=== PATIENT | male | born 1970 | race Caucasian/White ===

== ENCOUNTER 2020-06-26 12:01 | Emergency (ER) | payer BC, OTHER ==
--- OUTSIDE RECORDS SUMMARY | 2020-06-26 12:04 | XMS REPORT | Continuity of Care Document ---
:1970 Author Organization [facility] t Address [address] [place] [address] Care Team Providers Name Role Phone Lab, Fam Pob I Attending Clinician Unavailable Doctor Unassigned, Name Attending Clinician Unavailable Problems This patient has no known problems. Allergies, Adverse Reactions, Alerts This patient has no known allergies or adverse reactions. Medications This patient has no known medications. Procedures This patient has no known procedures. Encounters Start End Encounter Admission Attending Care Care Encounter Source Date/Time Date/Time Type Type Clinicians Facility Department ID 2020-06-24 2020-06-24 Laboratory Lab, Adc [facility] [id number] 13:33:51 13:53:51 Only Fam Pob I Health [id number] [place] [id number] [facility] [id number] nal [address] 2020-06-24 2020-06-24 Letter Doctor BURNETT [id number] 00:00:00 00:00:00 (Out) UnassignedKEHINDE [id number] [place] [facility] [id number] 2020-06-24 2020-06-24 Letter Doctor BURNETT [id number] 00:00:00 00:00:00 (Out) UnassignedKEHINDE [id number] [place] [facility] [id number] Results This patient has no known results.
--- OUTSIDE RECORDS SUMMARY | 2020-06-26 12:04 | XMS REPORT | Summary of Care ---
:1970 Author Organization [facility] Address [address] [place] [address] Care Team Providers Name Role Phone Pcp, Patient Does Not Have A Primary Care Provider +[id number] Encounter Details Date Type Department Care Team Description 06/24/2020 Letter (Out) [facility] aSnkett Message s Doctor Unassigned, No [address] [facility] [place] [address] [facility] [phone] [place] [address] Allergies Not on Filedocumented as of this encounter (statuses as of 06/24/2020) Medications Not on filedocumented as of this encounter (statuses as of 06/24/2020) Active Problems Not on filedocumented as of this encounter (statuses as of 06/24/2020) Social History Tobacco Use Types Packs/Day Years Used Date Never Assessed Sex Assigned at Date Recorded Not on file documented as of this encounter Last Filed Vital Signs Not on filedocumented in this encounter Plan of Treatment Date Type Specialty Care Team Description 06/24/2020 Laboratory Only Family Medicine Lab, Adc Fam Pob I Health Maintenance Due Date Last Done Comments Depression Screening 1980 DTaP,Tdap,and Td Vaccines (1 - 1987 Tdap) COLON CANCER SCREENING ANNUAL 2018 FIT/FOBT COLON CANCER SCREENING FIT DNA 2018 EVERY 3 YEARS COLON CANCER SCREENING 2018 SIGMOIDOSCOPY EVERY 5 YEARS COLONOSCOPY 2018 Colorectal Cancer Screening 2018 Zoster Recombinant Vaccine 2018 (SHINGRIX) (1 of 2) INFLUENZA VACCINE (#1) 2020 PNEUMOCOCCAL 0-64 YEARS COMBINED Aged Out No longer eligible based on SERIES patient's age to complete this topic documented as of this encounter Results Not on filedocumented in this encounter
--- OUTSIDE RECORDS SUMMARY | 2020-06-26 12:04 | XMS REPORT | Summary of Care ---
:1970 Author Organization [facility] Address [address] [place] [address] Care Team Providers Name Role Phone Mathew Shin Primary Care Provider Reason for Visit Reason Comments Exposure Encounter Details Date Type Department Care Team Description 06/24/2020 Laboratory Only [facility] Family Chaka Veliz FNP [address] [place] [phone] Suspected Covid-19 Medicine - [place] [facility], Adc Fam Pob I Virus Infection [address] [place] [address] (Primary D [place]) [place] [address] Allergies Not on Filedocumented as of this encounter (statuses as of 06/24/2020) Medications Not on filedocumented as of this encounter (statuses as of 06/24/2020) Active Problems Not on filedocumented as of this encounter (statuses as of 06/24/2020) Social History Tobacco Use Types Packs/Day Years Used Date Never Assessed Sex Assigned at Date Recorded Not on file COVID-19 Exposure Response Date Recorded In the last month, have you been in contact with No / Unsure 06/24/2020 1:35 PM CDT someone who was confirmed or suspected to have Coronavirus / COVID-19? documented as of this encounter Last Filed Vital Signs Not on filedocumented in this encounter Nursing Notes Jennie Rivera MA - 06/24/2020 1:40 PM CDTNorberto Goldstein is a 50 year old male here for COVID Screening with a Nasopharyngeal Swab All droplet and contact precautions taken with appropriate PPE worn while interacting with patient. ? Goggles ? N95 Mask ? Gloves ? Gown RR 20 Pulse 82 Ox 95% Patient educated on plan of care for visit, swabbing technique, risks and benefits of test and length of time to receive results. Verbal consent obtained to perform test. CDC Fact Sheet for Patients nCoV Diagnostic Panel dated 01/14/2020 and Factsheet What to Do if Sick with COVID 19 12/25/19 provided. Bilate nares swabbed during COVID19 nasopharyngeal swab. Patient swabbed per appropriate nasopharyngeal technique, and patient tolerated well. Patient was discharged from the testing clinic in stable condition. JENNIE RIVERA MA 06/24/2020 1:34 PM documented in this encounter Plan of Treatment Name Type Priority Associated Diagnoses Order S chedule COVID-19 (PCR MOLECULAR LAB Routine Suspected Covid-1 9 Virus Expected: 06/24/2020, TESTING) Infection Expires: 2020 Health Maintenance Due Date Last Done Comments Depression Screening 1980 DTaP,Tdap,and Td Vaccines ( - 1987 Tdap) COLON CANCER SCREENING ANNUAL [...] Results Not on filedocumented in this encounter Visit Diagnoses Diagnosis Suspected Covid-19 Virus Infection - Nicloe alfonso documented in this encounter Additional Health Concerns Infection Onset Date Last Indicated Resolved Time COVID-19 Rule Out 06/24/2020 06/24/2020 documented as of this encounter Insurance Payer Benefit Plan Subscriber ID Effective Dates Phone Address Type / Group [facility] [id number] 2019-Gayle [phone] [address] PPO/POS [place] - OUT OF t [id number] [place] [address] documented as of this encounter
--- OUTSIDE RECORDS SUMMARY | 2020-06-26 12:04 | XMS REPORT | Summary of Care ---
:1970 Author Organization [facility] Address [address] [place] [address] Care Team Providers Name Role Phone Mathew Shin Primary Care Provider Encounter Details Date Type Department Care Team Description 06/24/2020 Letter (Out) [facility] [employer] Message s Doctor Unassigned, No 301 [facility] [place] [phone] [facility] [phone] [place] [address] Allergies Not on Filedocumented as of this [...] Team Description 06/24/2020 Laboratory Only Family Medicine Herminia Veliz FNP [address] [address] Lab, Adc Fam Pob I Health Maintenance [...] Results Not on filedocumented in this encounter Insurance Payer Benefit Plan Subscriber ID Effective Dates Phone Address Type / Group [facility] [id number] 2019-Gayle [phone] [address] PPO/POS [place] - OUT OF t 7 [id number] [place] [address] documented as of this encounter
--- NOTE | 2020-06-26 13:48 | RAD REPORT ---
EXAM DESCRIPTION: Javon Single View06/26/2020 1:42 pm CLINICAL HISTORY: Fever COMPARISON: none FINDINGS: Mild to moderate bibasilar lung opacities Upper lobes appear clear. The heart is normal size IMPRESSION: [id number] bibasilar opacities likely pneumonia
[2020-06-26] MEDS ORDERED: dexAMETHasone 10 MG/ML VIAL ONE (13:57)
[2020-06-26] MEDS ORDERED: ACETAMINOPHEN 500 MG TAB ONE (13:57)
[2020-06-26 14:22] LABS: Absolute Lymphocytes (CBC) 0.8 K/uL (0.7-4.9); Basophils % 0.5 % (0-1.3); Hematocrit 39.3 % (39.6-49.0); Lymphocytes % 24.4 % (15.3-44.8); MPV 9.9 fL (7.6-11.3); RBC Red Blood Cell Count 4.37 M/uL (4.33-5.43)
[2020-06-26 15:14] LABS: Blood Morphology Comment NOT SEEN (NOT SEEN); Platelet Estimate ADEQ
[2020-06-26 15:15] LABS: ALT/SGPT 29 U/L (12-78); AST/SGOT 28 U/L (15-37); Albumin 3.3 g/dL (3.4-5.0); Alkaline Phosphatase 72 U/L (45-117); BUN Blood Urea Nitrogen 10 mg/dL (7-18); Bicarbonate 26 mmol/L (21-32); Bilirubin Direct 0.3 mg/dL (0-0.2); Bilirubin Total 0.6 mg/dL (0.2-1.0); Ferritin 500.8 ng/mL (26-388); Glucose Level 109 mg/dL (74-106); Potassium 3.6 mmol/L (3.5-5.1); Protein, Total 8.1 g/dL (6.4-8.2); Sodium Level 135 mmol/L (136-145); Troponin (Emerg Dept Use Only) < 0.02 ng/mL (0.0-0.045)
[2020-06-26 15:18] LABS: Protime INR 1.14
--- NOTE | 2020-06-26 15:27 | ER ---
Nurse's Notes [facility] Name: Norberto Goldstein Age: 50 yrs Sex: Male : 1970 Arrival Date: 06/26/2020 Time: 12:04 Bed 15 Private MD: Diagnosis: Coronavirus infection, unspecified;Shortness of breath;Viral pneumonia, unspecified Presentation: 06/26 12:43 Chief complaint: Patient states: Covid +. Swabbed on 06/24/2020. Symptoms started ca1 06/19/2020. Reports cough, fever, diarrhea, nausea, fatigue, body aches, headache. Today, feels worse and SOB at rest started. Coronavirus screen: Client denies travel out of the [place] in the last 14 days. diarrhea, fatigue, fever, headache, muscle pain, nausea, shortness of breath, Client presents with at least one sign or symptom that may indicate coronavirus-19. Standard/surgical mask placed on the client. Provider contacted for isolation considerations. Client reports previous positive COVID test result. Date of collection: June 24, 2020 [facility] Staff notified of need for isolation. Ebola Screen: Patient negative for fever greater than or equal to 101.5 degrees Fahrenheit, and additional compatible Ebola Virus Disease symptoms Patient denies exposure to infectious person. Patient denies travel to an Ebola-affected area in the 21 days before illness onset. No symptoms or risks identified at this time. Initial Sepsis Screen: Does the patient meet any 2 criteria? No. Patient's initial sepsis screen is negative. Does the patient have a suspected source of infection? No. Patient's initial sepsis screen is negative. Risk Assessment: Do you want to hurt yourself or someone else? Patient reports no desire to harm self or others. Onset of symptoms was June 26, 2020. 12:43 Method Of Arrival: Ambulatory ca1 12:43 Acuity: FITO 3 ca1 Historical: - Allergies: 12:48 No Known Allergies; ca1 - Home Meds: 12:48 Metformin Oral [Active]; ca1 - PMHx: 12:48 Hypertension; Diabetes - NIDDM; High Cholesterol; ca1 - PSHx: 12:48 None; ca1 - Immunization history:: Adult Immunizations up to date. - Social history:: Smoking status: Patient denies any tobacco usage or history of. Screenin:49 Abuse screen: Denies threats or abuse. Denies injuries from another. Nutritional ca1 screening: No deficits noted. Tuberculosis screening: No symptoms or risk factors identified. Fall Risk IV access (20 points). Assessment: 12:50 General: Appears in no apparent distress. comfortable, Behavior is calm, cooperative, ca1 appropriate for age. Pain: Denies pain. Neuro: Level of Consciousness is awake, alert, obeys commands, Oriented to person, place, time, situation. Cardiovascular: Heart tones S1 S2 present Capillary refill < 3 seconds Patient's skin is warm and dry. Respiratory: Reports shortness of breath at rest cough that is Airway is patent Respiratory effort is even, unlabored, Respiratory pattern is regular, symmetrical, Breath sounds are clear bilaterally. GI: Abdomen is round non-distended, obese, Bowel sounds present X 4 quads. Abd is soft and non tender X 4 quads. : No signs and/or symptoms were reported regarding the genitourinary system. EENT: No signs and/or symptoms were reported regarding the EENT system. Derm: Skin is intact, is healthy with good turgor, Skin is pink, warm \T\ dry. Musculoskeletal: Circulation, motion, and sensation intact. Capillary refill < 3 seconds. 13:50 Reassessment: Patient appears in no apparent distress at this time. No changes from ca1 previously documented assessment. Patient and/or family updated on plan of care and expected duration. Pain level reassessed. Patient is alert, oriented x 3, equal unlabored respirations, skin warm/dry/pink. 14:58 Reassessment: Patient appears in no apparent distress at this time. No changes from ca1 previously documented assessment. Patient and/or family updated on plan of care and expected duration. Pain level reassessed. Patient is alert, oriented x 3, equal unlabored respirations, skin warm/dry/pink. 15:23 Reassessment: Ambulated pt around nurse's station. Denies SOB. SPO2 maintained at 95% ca1 Ra. Notified provider. 15:43 Reassessment: Patient appears in no apparent distress at this time. Patient is alert, ca1 oriented x 3, equal unlabored respirations, skin warm/dry/pink. Patient states feeling better. Vital Signs: 12:43 BP 124 / 53; Pulse 75; Resp 18 S; Temp 100.6(O); Pulse Ox 97% on R/A; Weight 158.76 kg ca1 (R); Height 6 ft. 3 in. (190.50 cm) (R); 13:50 BP 127 / 65; Pulse 73; Resp 19 S; Pulse Ox 98% on R/A; ca1 14:52 BP 106 / 64; Pulse 70; Resp 19 S; Temp 98.8(O); Pulse Ox 95% on R/A; ca1 15:43 BP 111 / 62; Pulse 76; Resp 18 S; Pulse Ox 98% on R/A; ca1 12:43 Body Mass Index 43.75 (158.76 kg, 190.50 cm) ca1 ED Course: 12:04 Patient arrived in ED. ag5 12:07 Rick Sanz PA is PHCP. jr8 12:07 Jose Hernandez MD is Attending Physician. jr8 12:21 Carisa Betancur, DANIELLE is Primary Nurse. ca1 12:47 Triage completed. ca1 12:48 Arm band placed on right wrist. ca1 12:49 Patient has correct armband on for positive identification. Placed in gown. Bed in low ca1 position. Call light in reach. Side rails up X 1. Pulse ox on. NIBP on. 12:49 No provider procedures requiring assistance completed. ca1 13:42 CXR XRAY In Process Unspecified. EDMS 14:10 Inserted saline lock: 20 gauge in left antecubital area, using aseptic technique. Blood ca1 collected. 14:10 Initial lab(s) drawn, by me, sent to lab. First set of blood cultures drawn by me. ca1 14:20 Second set of blood cultures drawn by me. ca1 14:57 Lab(s) recollected, by me, sent to lab. ca1 15:44 IV discontinued, intact, bleeding controlled, No redness/swelling at site. Pressure ca1 dressing applied. 15:53 Primary Nurse role handed off by Carisa Betancur, RN aa5 Administered Medications: 13:40 Drug: Tylenol 1000 mg Route: PO; ca1 15:00 Follow up: Response: No adverse reaction; Temperature is decreased ca1 14:40 Drug: Decadron - Dexamethasone 10 mg Route: IVP; Site: left antecubital; ca1 15:30 Follow up: Response: No adverse reaction; Marked relief of symptoms ca1 Outcome: 15:26 Discharge ordered by . jr8 15:44 Discharged to home ambulatory. ca1 15:44 Condition: stable 15:44 Discharge instructions given to patient, Instructed on discharge instructions, follow up and referral plans. medication usage, Demonstrated understanding of instructions, follow-up care, medications, Prescriptions given X 3. 15:44 Patient left the ED. ca1 Signatures: Dispatcher [employer] EDMS Maddie Alberto RN RN aa5 Rick Sanz PA PA jr8 Carisa Betancur RN RN ca1 Wing Bryant ag5 Corrections: (The following items were deleted from the chart) 15:15 14:52 BP 106 / 64; Pulse 70bpm; Resp 19bpm; Spontaneous; Pulse Ox 95% RA; ca1 ca1 15:55 15:55 Patient left the ED. ca1 aa5
--- NOTE | 2020-06-26 15:27 | EDPHYS ---
Physician Documentation [facility] Name: Norberto Goldstein Age: 50 yrs Sex: Male : 1970 Arrival Date: 06/26/2020 Time: 12:04 Bed 15 Private MD: ED Physician Jose Hernandez HPI: 06/26 14:23 This 50 yrs old Male presents to ER via Ambulatory with complaints of COVID+, jr8 Weakness, Breathing Difficulty. 14:23 The patient has shortness of breath at rest. Onset: The symptoms/episode began/occurred jr8 gradually, 1 week(s) ago. Duration: The symptoms are continuous. The patient's shortness of breath is aggravated by exertion. Associated signs and symptoms: Pertinent positives: non-productive cough, fever. Severity of symptoms: At their worst the symptoms were moderate in the emergency department the symptoms are unchanged. The patient has not experienced similar symptoms in the past. The patient has not recently seen a physician. Patient stated that he started with COVID like symptoms over a week ago. Was tested and received results yesterday showing that he was positive. Stated that he has been progressively worsening over the past week. Historical: - Allergies: 12:48 No Known Allergies; ca1 - Home Meds: 12:48 Metformin Oral [Active]; ca1 - PMHx: 12:48 Hypertension; Diabetes - NIDDM; High Cholesterol; ca1 - PSHx: 12:48 None; ca1 - Immunization history:: Adult Immunizations up to date. - Social history:: Smoking status: Patient denies any tobacco usage or history of. ROS: 14:23 Eyes: Negative for injury, pain, redness, and discharge, ENT: Negative for injury, jr8 pain, and discharge, Neck: Negative for injury, pain, and swelling, Cardiovascular: Negative for chest pain, palpitations, and edema, Abdomen/GI: Negative for abdominal pain, nausea, vomiting, diarrhea, and constipation, Back: Negative for injury and pain, MS/Extremity: Negative for injury and deformity, Skin: Negative for injury, rash, and discoloration, Neuro: Negative for headache, weakness, numbness, tingling, and seizure. 14:23 Constitutional: Positive for fatigue, fever. 14:23 Respiratory: Positive for cough, dyspnea on exertion, shortness of breath. Exam: 14:23 Eyes: Pupils equal round and reactive to light, extra-ocular motions intact. Lids and jr8 lashes normal. Conjunctiva and sclera are non-icteric and not injected. Cornea within normal limits. Periorbital areas with no swelling, redness, or edema. ENT: Nares patent. No nasal discharge, no septal abnormalities noted. Tympanic membranes are normal and external auditory canals are clear. Oropharynx with no redness, swelling, or masses, exudates, or evidence of obstruction, uvula midline. Mucous membranes moist. Neck: Trachea midline, no thyromegaly or masses palpated, and no cervical lymphadenopathy. Supple, full range of motion without nuchal rigidity, or vertebral point tenderness. No Meningismus. Cardiovascular: Regular rate and rhythm with a normal S1 and S2. No gallops, murmurs, or rubs. Normal PMI, no JVD. No pulse deficits. Respiratory: Lungs have equal breath sounds bilaterally, clear to auscultation and percussion. No rales, rhonchi or wheezes noted. No increased work of breathing, no retractions or nasal flaring. Abdomen/GI: Soft, non-tender, with normal bowel sounds. No distension or tympany. No guarding or rebound. No evidence of tenderness throughout. Back: No spinal tenderness. No costovertebral tenderness. Full range of motion. Skin: Warm, dry with normal turgor. Normal color with no rashes, no lesions, and no evidence of cellulitis. MS/ Extremity: Pulses equal, no cyanosis. Neurovascular intact. Full, normal range of motion. Neuro: Awake and alert, GCS 15, oriented to person, place, time, and situation. Cranial nerves II-XII grossly intact. Motor strength 5/5 in all extremities. Sensory grossly intact. Cerebellar exam normal. Vital Signs: 12:43 BP 124 / 53; Pulse 75; Resp 18 S; Temp 100.6(O); Pulse Ox 97% on R/A; Weight 158.76 kg ca1 (R); Height 6 ft. 3 in. (190.50 cm) (R); 13:50 BP 127 / 65; Pulse 73; Resp 19 S; Pulse Ox 98% on R/A; ca1 14:52 BP 106 / 64; Pulse 70; Resp 19 S; Temp 98.8(O); Pulse Ox 95% on R/A; ca1 15:43 BP 111 / 62; Pulse 76; Resp 18 S; Pulse Ox 98% on R/A; ca1 12:43 Body Mass Index 43.75 (158.76 kg, 190.50 cm) ca1 MDM: 13:03 Patient medically screened. [facility] 15:22 Data reviewed: vital signs, nurses notes, lab test result(s), EKG, radiologic studies, [facility] plain films. Data interpreted: Pulse oximetry: on room air is 95 %. Interpretation: normal. Counseling: I had a detailed discussion with the patient and/or guardian regarding: the historical points, exam findings, and any diagnostic results supporting the discharge/admit diagnosis, lab results, radiology results, the need for outpatient follow up, a family practitioner, to return to the emergency department if symptoms worsen or persist or if there are any questions or concerns that arise at home. ED course: Patient maintains normal saturation at rest off of oxygen. With brisk ambulation in room drops to 92% but came up almost immediately upon rest. Otherwise hemodynamically stable and with no increase in work of breathing. Labs and CXR consistent with covid viral pneumonia. Patient not needing oxygen requirement. Will d/c home with medication and close return precautions . 06/26 13:03 Order name: Blood Culture Adult (2) [facility] 06/26 13:03 Order name: BMP; Complete Time: 15: [facility] 06/26 13:03 Order name: C-Reactive Protein; Complete Time: 15: [facility] 06/26 13:03 Order name: CBC with Diff; Complete Time: 15:22 [facility] 06/26 13:03 Order name: COVID-19 [facility] 06/26 13:03 Order name: Ferritin; Complete Time: 15:22 [facility] 06/26 13:03 Order name: Lactate; Complete Time: 14:39 [facility] 06/26 13:03 Order name: LFT's; Complete Time: 15:22 [facility] 06/26 13:03 Order name: Procalcitonin; Complete Time: 14:59 [facility] 06/26 13:03 Order name: PT-INR; Complete Time: 15:22 [facility] 06/26 13:03 Order name: Ptt, Activated; Complete Time: 15:22 [facility] 06/26 13:03 Order name: Troponin (emerg Dept Use Only); Complete Time: 15:22 jr06/26 13:03 Order name: CXR XRAY; Complete Time: 13:55 06/26 13:03 Order name: EKG; Complete Time: 13:03 06/26 13:03 Order name: Cardiac monitoring; Complete Time: 14:43 06/26 13:03 Order name: Droplet/Contact Precautions; Complete Time: 14:43 06/26 13:03 Order name: EKG - Nurse/Tech; Complete Time: 14:43 06/26 13:03 Order name: IV Start; Complete Time: 14:43 06/26 13:03 Order name: Labs collected and sent; Complete Time: 14:45 06/26 13:03 Order name: Notify Health Dept [phone]/ ; Complete Time: 14:45 06/26 13:03 Order name: O2 Per Protocol; Complete Time: 14:45 06/26 13:03 Order name: O2 Sat Monitoring; Complete Time: 14:46 [facility] 06/26 14:36 Order name: Manual Differential; Complete Time: 15:22 EDMS 06/26 15:55 Order name: Urine Dipstick--Ancillary (enter results) aa5 06/26 13:03 Order name: Urine Dipstick-Ancillary (obtain specimen); Complete Time: 15:00 [facility] 06/26 14:31 Order name: Labs - recollect needed: recollect blue top; Complete Time: 14:58 bd Administered Medications: 13:40 Drug: Tylenol 1000 mg Route: PO; ca1 15:00 Follow up: Response: No adverse reaction; Temperature is decreased ca1 14:40 Drug: Decadron - Dexamethasone 10 mg Route: IVP; Site: left antecubital; ca1 15:30 Follow up: Response: No adverse reaction; Marked relief of symptoms ca1 Disposition: 16:50 Co-signature as Attending Physician, Jose Hernandez MD. rn Disposition: 06/26/20 15:26 Discharged to Home. Impression: Coronavirus infection, unspecified, Shortness of breath, Viral pneumonia, unspecified. - Condition is Stable. - Discharge Instructions: Shortness of Breath, COVID-19. - Prescriptions for Flovent HFA 110 mcg/actuation Inhalation Aerosol - inhale 2 puffs by INHALATION route 2 times per day; 1 Inhaler. Prednisone 20 mg Oral Tablet - take 2 tablets by ORAL route once daily for 7 days; 14 tablet. Zithromax Z- Saulo 250 mg Oral Tablet - take 1 tablet by ORAL route as directed for 5 days Day 1 - take two (2) tablets one time. Day 2, 3, 4 , 5 take one (1) tablet once daily.; 6 tablet. - Medication Reconciliation Form, Thank You Letter, Antibiotic Education, Prescription Opioid Use form. - Follow up: Private Physician; When: 1 week; Reason: Recheck today's complaints, Continuance of care, Re-evaluation by your physician. - Problem is new. - Symptoms have improved. Signatures: Dispatcher [employer] EDMS Adriane Burgess Roman, MD MD rn Roszak, Josh, PA PA jr8 Gypsy, DANIELLE Younger RN ca1 Corrections: (The following items were deleted from the chart) 13:03 13:03 Montano ordered. 8 ca1 14:44 13:03 Document PUI# ordered. 8 ca1 15:44 15:26 06/26/2020 15:26 Discharged to Home. Impression: Coronavirus infection, ca1 unspecified; Shortness of breath; Viral pneumonia, unspecified. Condition is Stable. Forms are Medication Reconciliation Form, Thank You Letter, Antibiotic Education, Prescription Opioid Use. Follow up: Private Physician; When: 1 week; Reason: Recheck today's complaints, Continuance of care, Re-evaluation by your physician. Problem is new. Symptoms have improved. [facility] 15:55 15:44 06/26/2020 15:26 Discharged to Home. Impression: Coronavirus infection, ca1 unspecified; Shortness of breath; Viral pneumonia, unspecified. Condition is Stable. Discharge Instructions: Shortness of Breath, COVID-19. Prescriptions for Flovent HFA 110 mcg/actuation Inhalation Aerosol - inhale 2 puffs by INHALATION route 2 times per day; 1 Inhaler, Prednisone 20 mg Oral Tablet - take 2 tablets by ORAL route once daily for 7 days; 14 tablet, Zithromax Z-Saulo 250 mg Oral Tablet - take 1 tablet by ORAL route as directed for 5 days Day 1 - take two (2) tablets one time. Day 2, 3, 4 , 5 take one (1) tablet once daily.; 6 tablet. and Forms are Medication Reconciliation Form, Thank You Letter, Antibiotic Education, Prescription Opioid Use. Follow up: Private Physician; When: 1 week; Reason: Recheck today's complaints, Continuance of care, Re-evaluation by your physician. Problem is new. Symptoms have improved. ca1
[2020-06-26 16:02] LABS: Urine Blood NEGATIVE (NEG); Urine Glucose NEGATIVE (NEG); Urine Protein 2+ (NEG); Urine Specific Gravity 1.015 (1.005-1.030)
[2020-07-01 11:11] VITALS: TEMP 98.8
[2020-07-01 11:13] VITALS: BP 111/62; O2SAT 98
== END 2020-06-26 15:55 | disposition home or self-care (01) ==
LOC: ER 12:01
DX: U07.1 COVID-19 (principal); J12.9 Viral pneumonia, unspecified; I10 Essential (primary) hypertension; E11.9 Type 2 diabetes mellitus without complications
CPT/HCPCS: 93005; 87040 ×2; 85025; 80048; 36415; 85610; 80076; 83605; 85730; 81003; 84484; 82728; 84145; 86140; 71045; 96374; 99284; J1100

== ENCOUNTER 2023-06-20 00:19 | Emergency (ER) | payer BC ==
--- OUTSIDE RECORDS SUMMARY | 2023-06-20 00:22 | XMS REPORT | Continuity of Care Document ---
:1970 Author Organization [facility] t Address [address] [facility] [address] [place] [address] Care Team Providers Name Role Phone Lex Alston PA-C Attending Clinician Lab, Adc Fam Pob I Attending Clinician Unavailable Herminia Stoddard Attending Clinician Doctor Unassigned, [place] Attending Clinician Unavailable Payers Payer Name Policy Type Policy Number Effective Date Expiration Date S ource Problems This patient has no known problems. Allergies, Adverse Reactions, Alerts Allergy Allergy Status Severity Reaction(s) Onset Inactive Treating Comm ents Source Name Type Date Date Clinician NO KNOWN Drug Active [facility] ALLERGIE Class [facility] Social History Social Habit Start Date Stop Date Quantity Comments [facility] to SARS-[facility]2 Not sure [facility] [place] [facility] Smoking Status Start Date Stop Date Source Unknown if ever smoked [facility] Medications This patient has no known medications. Procedures This patient has no known procedures. Encounters Start End Encounter Admission Attending Care Care Encounter Source Date/Time Date/Time Type Type Clinicians Facility Department ID 2020-06-26 2020-06-26 Telephone LEX Alston [id number] Univers 00:00:00 00:00:00 Lex BUSBY [id number] [facility] [id number] Charlie as [id number] [address] 2020-06-26 2020-06-26 Telephone LEX Alston [id number] 00:00:00 00:00:00 Lex BUSBY [id number] HOSPITAL [id number] [facility] 2020-06-24 2020-06-24 Laboratory Lab, [facility] Fam Pob I [facility] [id number] Univers 13:33:51 13:53:51 Only Anene, [facility] [id number] [facility] [place] [id number] Charlie as Professio [phone] Pr dical [address] Office Building [facility] 2020-06-24 2020-06-24 Laboratory Lab, [facility] [id number] 13:33:51 13:53:51 Only Fam Pob I Health [id number] [place] [id number] Professio [phone] [place] [address] Office [facility] 2020-06-24 2020-06-24 Outpatient R [facility] [id number] Univers 13:40:00 13:40:00 ity of [facility] 2020-06-24 2020-06-24 Letter Doctor BURNETT [id number] Univers 00:00:00 00:00:00 (Out) Unassigned, KEHINDE [id number] [facility] [place] [facility] [id number] Charlie as [phone] [address] 2020-06-24 2020-06-24 Letter Doctor BURNETT [id number] Univers 00:00:00 00:00:00 (Out) Unassigned, KEHINDE [id number] [facility] [place] [facility] [id number] Charlie as [phone] [address] 2020-06-24 2020-06-24 Letter Doctor BURNETT [id number] 00:00:00 00:00:00 (Out) Unassigned, KEHINDE [id number] [place] [facility] [id number] [facility] 2020-06-24 2020-06-24 Letter Doctor LEX [id number] 00:00:00 00:00:00 (Out) Unassigned, KEHINED [id number] [place] [facility] [phone] [id number] Results This patient has no known results.
[2023-06-20] MEDS ORDERED: MORPHINE 4 MG/ML SYR ONE (01:05)
[2023-06-20] MEDS ORDERED: ONDANSETRON 4 MG/2 ML VIAL ONE (01:05)
[2023-06-20] MEDS ORDERED: NA CHLORIDE 0.9% 1,000 ML ONE (01:05)
[2023-06-20 01:40] LABS: Absolute Lymphocytes (CBC) 1.8 K/uL (0.7-4.9); Hematocrit 40.1 % (39.6-49.0); Lymphocytes % 26.4 % (15.3-44.8); MCV 90.6 fL (80-100); MPV 9.8 fL (7.6-11.3); Platelets 166 thou/uL (152-406); RBC Red Blood Cell Count 4.43 M/uL (4.33-5.43)
[2023-06-20 01:57] LABS: Albumin 4.1 g/dL (3.4-5.0); Bilirubin Total 0.6 mg/dL (0.2-1.0); Potassium 3.4 mEq/L (3.5-5.1); Troponin High Sensitivity 12.4 pg/mL (<58.9)
[2023-06-20] MEDS ORDERED: HYDROMORPHONE HCL 1 MG/ML INJ ONE (01:58)
--- NOTE | 2023-06-20 04:17 | ER ---
Nurse's Notes [facility] Name: Norberto Goldstein Age: 53 yrs Sex: Male : 1970 Arrival Date: 06/20/2023 Time: 00:19 Bed 20 Private MD: Diagnosis: Biliary colic;Gallstones;Acute upper abdominal pain Presentation: 06/20 00:43 Chief complaint: Patient states: upper abdominal pain of 10 with nausea and pf1 belching,onset 2 hours ago. Patient stated LBM was 2 hours ago. Coronavirus screen: Vaccine status: Patient reports receiving the 1st dose of the Covid vaccine. [employer] Client denies travel out of the [place] in the last 14 days. At this time, the client does not indicate any symptoms associated with coronavirus-19. Ebola Screen: Patient negative for fever greater than or equal to 101.5 degrees Fahrenheit, and additional compatible Ebola Virus Disease symptoms. Initial Sepsis Screen: Does the patient meet any 2 criteria? No. Patient's initial sepsis screen is negative. Does the patient have a suspected source of infection? No. Patient's initial sepsis screen is negative. Risk Assessment: Do you want to hurt yourself or someone else? Patient reports no desire to harm self or others. 00:43 Method Of Arrival: Ambulatory pf1 00:43 Acuity: FITO 3 pf1 Historical: - Allergies: 00:46 No Known Allergies; pf1 - PMHx: 00:46 Diabetes - NIDDM; High Cholesterol; Hypertension; pf1 - PSHx: 00:46 None; pf1 - Immunization history:: Adult Immunizations up to date, Client reports receiving the 1st dose of the Covid vaccine, Last tetanus immunization: > 10 years ago Flu vaccine is up to date. - Social history:: Smoking status: Patient denies any tobacco usage or history of. Patient/guardian denies using alcohol, street drugs. Screenin:34 [facility] ED Fall Risk Assessment (Adult) History of falling in the last 3 months, ll3 including since admission No falls in past 3 months (0 pts) Confusion or Disorientation No (0 pts) Intoxicated or Sedated No (0 pts) Impaired Gait No (0 pts) Mobility Assist Device Used No (0 pt) Altered Elimination No (0 pt) Score/Fall Risk Level 0 - 2 = Low Risk Oriented to surroundings, Maintained a safe environment, Educated pt \T\ family on fall prevention, incl call for assistance when getting out of bed. Abuse screen: Denies threats or abuse. Denies injuries from another. Nutritional screening: No deficits noted. Tuberculosis screening: No symptoms or risk factors identified. Assessment: 01:00 General: Appears distressed, uncomfortable, Behavior is anxious. Pain: Complains of ad6 pain in upper abdomen Pain currently is 10 out of 10 on a pain scale. Neuro: No deficits noted. Level of Consciousness is awake, alert, obeys commands, Oriented to person, place, time, situation. Cardiovascular: No deficits noted. Respiratory: No deficits noted. Airway is patent Trachea midline. GI: Reports. GI: Abdomen is round Bowel sounds present X 4 quads. Abdomen is tender to palpation Reports upper abdominal pain. 01:00 GI: Reports upper abdominal pain, nausea, and belching. ad6 02:00 Reassessment: Patient and/or family updated on plan of care and expected duration. Pain ad6 level reassessed. Patient is alert, oriented x 3, equal unlabored respirations, skin warm/dry/pink. Patient states symptoms have improved. 02:55 Reassessment: No changes from previously documented assessment. Patient and/or family ad6 updated on plan of care and expected duration. Pain level reassessed. Patient is alert, oriented x 3, equal unlabored respirations, skin warm/dry/pink. Patient states feeling better. Vital Signs: 00:43 BP 165 / 86; Pulse 65; Resp 16; Temp 97.8; Pulse Ox 99% on R/A; Weight 158.76 kg; pf1 Height 6 ft. 3 in. ; Pain 10/10; 01:15 BP 161 / 95; Pulse 66; Resp 26; Pulse Ox 98% ; ad6 02:15 BP 138 / 68; Pulse 60; Resp 20; Pulse Ox 99% ; ad6 03:10 BP 160 / 89; Pulse 62; Resp 21; Pulse Ox 98% ; ad6 04:27 BP 156 / 86; Pulse 60; Resp 19; Pulse Ox 97% ; ll3 00:43 Body Mass Index 43.75 (158.76 kg, 190.5 cm) pf1 00:43 Pain Scale: Adult pf1 ED Course: 00:24 Patient arrived in ED. kj1 00:35 Cordelia Mallory MD is Attending Physician. sd2 00:46 Triage completed. pf1 01:10 Initial lab(s) drawn, by me, sent to lab. Inserted saline lock: 22 gauge in left wm forearm, using aseptic technique. Blood collected. 01:48 Bed in low position. Call light in reach. Side rails up X2. Adult w/ patient. Client wm placed on continuous cardiac and pulse oximetry monitoring. NIBP monitoring applied. case monitor on. Pulse ox on. 01:50 Troponin High Sensitivity Sent. wm 01:50 Lipase Sent. wm 01:50 CMP Sent. wm 01:50 CBC with Diff Sent. wm 02:45 US Abdomen Limited In Process Unspecified. EDMS 04:15 Ortiz Vega MD is Referral Physician. sd2 04:34 No provider procedures requiring assistance completed. IV discontinued, intact, ll3 bleeding controlled, No redness/swelling at site. Pressure dressing applied. Administered Medications: 01:23 Drug: morphine IVP or IV 4 mg Route: IVP; Infused Over: 4 mins; Site: left forearm; ad6 04:33 Follow up: Response: No adverse reaction; Pain is decreased ll3 01:23 Drug: Ondansetron IVP 4 mg Route: IVP; Site: left forearm; ad6 04:33 Follow up: Response: No adverse reaction ll3 01:23 Drug: NS 0.9% IV 1000 ml Route: IV; Rate: 1 bolus; Site: left forearm; ad6 04:33 Follow up: Response: No adverse reaction; IV Status: Completed infusion; IV Intake: ll3 1000ml 01:47 Drug: HYDROmorphone IVP 1 mg Route: IVP; Site: left forearm; ad6 04:33 Follow up: Response: No adverse reaction; Marked relief of symptoms; Pain is decreased ll3 04:51 Follow up: Response: No adverse reaction ad6 04:33 Drug: [place] PO 10 mg-325 mg 1 tabs Route: PO; ll3 04:34 Follow up: Response: Medication administered at discharge. ll3 Medication: 04:34 VIS not applicable for this client. ll3 Intake: 04:33 IV: 1000ml; Total: 1000ml. ll3 Outcome: 04:16 Discharge ordered by . sd2 04:34 Discharged to home ambulatory, with significant other. ll3 04:34 Condition: stable 04:34 Discharge instructions given to patient, significant other, Instructed on discharge instructions, follow up and referral plans. medication usage, Demonstrated understanding of instructions, follow-up care, medications, Prescriptions given X 2. 04:35 Patient left the ED. ll3 Signatures: Dispatcher [employer] EDMS Maria Alejandra Hayes kjTri Padilla Valentin Gutierrez RN RN ll3 Cordelia Mallory MD MD sd2 Masha Mcdonnell RN RN pf1 Kelley Vasquez RN RN ad6 Corrections: (The following items were deleted from the chart) 01:49 01:47 Inserted saline lock: 22 gauge in left forearm, using aseptic technique. Blood wm collected. 01:49 01:47 Initial lab(s) drawn, by me, sent to lab. [facility] 02:51 02:50 GI: Reports nausea, and belching ad6 ad6 02:51 01:00 GI: Reports nausea, and belching ad6 ad6
--- NOTE | 2023-06-20 04:17 | EDPHYS ---
Physician Documentation [facility] Name: Norberto Goldstein Age: 53 yrs Sex: Male : 1970 Arrival Date: 06/20/2023 Time: 00:19 Bed 20 Private MD: ED Physician Cordelia Mallory HPI: 06/20 04:10 This 53 yrs old Male presents to ER via Ambulatory with complaints of Abdominal Pain. 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 Reports sd2 associated nausea and belching. NO vomiting or diarrhea. Last BM 2 hours ago as well. 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 .. Historical: - Allergies: 00:46 No Known Allergies; pf1 - PMHx: 00:46 Diabetes - NIDDM; High Cholesterol; Hypertension; pf1 - PSHx: 00:46 None; pf1 - Immunization history:: Adult Immunizations up to date, Client reports receiving the 1st dose of the Covid vaccine, Last tetanus immunization: > 10 years ago Flu vaccine is up to date. - Social history:: Smoking status: Patient denies any tobacco usage or history of. Patient/guardian denies using alcohol, street drugs. ROS: 04:10 Constitutional: Negative for fever, chills, and weight loss, Eyes: Negative for injury, sd2 pain, redness, and discharge, Cardiovascular: Negative for chest pain, palpitations, and edema, Respiratory: Negative for shortness of breath, cough, wheezing. 04:10 : Negative for dysuria, frequency or hematuria. MS/Extremity: Negative for injury and deformity, Skin: Negative for injury, rash, and discoloration, Neuro: Negative for headache, numbness and tingling. 04:10 Abdomen/GI: Positive for abdominal pain, nausea, Negative for vomiting, diarrhea. Exam: 04:10 Constitutional: This is a well developed, well nourished patient who is awake, alert, sd2 and in no acute distress. Head/Face: Normocephalic, atraumatic. Eyes: EOMI, normal conjunctiva bilaterally ENT: Nares patent. No nasal discharge, no septal abnormalities noted. Tympanic membranes are normal and external auditory canals are clear. Oropharynx with no redness, swelling, or masses, exudates, or evidence of obstruction, uvula midline. Mucous membranes moist. Chest/axilla: Normal chest wall appearance and motion. Nontender with no deformity. Cardiovascular: Regular rate and rhythm with a normal S1 and S2. No gallops, murmurs, or rubs. 2+ distal pulses. Respiratory: Lungs have equal breath sounds bilaterally, clear to auscultation and percussion. No rales, rhonchi or wheezes noted. No increased work of breathing, no retractions or nasal flaring. Abdomen/GI: Soft, obese abdomen, with TTP noted in epigastric and bilateral upper quadrants, positive Nair's sign Skin: Warm, dry with normal turgor. Normal color with no rashes, no lesions, and no evidence of cellulitis. MS/ Extremity: Pulses equal, no cyanosis. Neurovascular intact. Full, normal range of motion. Ambulatory without difficulty. Psych: Awake, alert, with orientation to person, place and time. Behavior, mood, and affect are within normal limits. Vital Signs: 00:43 BP 165 / 86; Pulse 65; Resp 16; Temp 97.8; Pulse Ox 99% on R/A; Weight 158.76 kg; pf1 Height 6 ft. 3 in. ; Pain 10/10; 01:15 BP 161 / 95; Pulse 66; Resp 26; Pulse Ox 98% ; ad6 02:15 BP 138 / 68; Pulse 60; Resp 20; Pulse Ox 99% ; ad6 03:10 BP 160 / 89; Pulse 62; Resp 21; Pulse Ox 98% ; ad6 04:27 BP 156 / 86; Pulse 60; Resp 19; Pulse Ox 97% ; ll3 00:43 Body Mass Index 43.75 (158.76 kg, 190.5 cm) pf1 00:43 Pain Scale: Adult pf1 MDM: 00:35 Patient medically screened. sd2 04:10 Differential Diagnosis Gastritis, cholecystitis, pancreatitis, SBO, diverticulitis, sd2 kidney stone, appendicitis, UTI, dehydration, electrolyte abnormality among others. Data reviewed: vital signs, nurses notes, lab test result(s), radiologic studies. I considered the following discharge prescriptions or medication management in the emergency department Medications were administered in the Emergency Department. See MAR. Historians other than the Patient: Spouse/Significant Other: provides further hx at bedside. Care significantly affected by the following chronic conditions: Diabetes, Hypertension, Obesity. Counseling: I had a detailed discussion with the patient and/or guardian regarding the historical points, exam findings, and any diagnostic results supporting the discharge/admit diagnosis, lab results, radiology results, the need for outpatient follow up, to return to the emergency department if symptoms worsen or persist or if there are any questions or concerns that arise at home. ED course: Discussed all results with pt and SO at bedside who verbalize understanding. US is consistent with gallstones with no evidence of cholecystitis. Pt and comfortable with plan for discharge and outpatient follow up and verbalize understanding of discharge plan and strict return precautions. . 06/20 00:50 Order name: CBC with Diff; Complete Time: 02:11 sd2 06/20 00:50 Order name: CMP; Complete Time: 02:11 sd2 06/20 00:50 Order name: Lipase; Complete Time: 02:11 sd2 06/20 00:50 Order name: Troponin High Sensitivity; Complete Time: 02:11 sd2 06/20 00:50 Order name: US Abdomen Limited sd2 06/20 00:50 Order name: EKG; Complete Time: 00:51 sd2 Administered Medications: 01:23 Drug: morphine IVP or IV 4 mg Route: IVP; Infused Over: 4 mins; Site: left forearm; ad6 04:33 Follow up: Response: No adverse reaction; Pain is decreased ll3 01:23 Drug: Ondansetron IVP 4 mg Route: IVP; Site: left forearm; ad6 04:33 Follow up: Response: No adverse reaction ll3 01:23 Drug: NS 0.9% IV 1000 ml Route: IV; Rate: 1 bolus; Site: left forearm; ad6 04:33 Follow up: Response: No adverse reaction; IV Status: Completed infusion; IV Intake: ll3 1000ml 01:47 Drug: HYDROmorphone IVP 1 mg Route: IVP; Site: left forearm; ad6 04:33 Follow up: Response: No adverse reaction; Marked relief of symptoms; Pain is decreased ll3 04:51 Follow up: Response: No adverse reaction ad6 04:33 Drug: Gary PO 10 mg-325 mg 1 tabs Route: PO; ll3 04:34 Follow up: Response: Medication administered at discharge. ll3 Disposition Summary: 06/20/23 04:16 Discharge Ordered Location: Home sd2 Problem: new sd2 Symptoms: have improved sd2 Condition: Stable sd2 Diagnosis - Biliary colic sd2 - Gallstones sd2 - Acute upper abdominal pain sd2 Followup: sd2 - With: Ortiz Vega MD - When: 1 week - Reason: Recheck today's complaints, Continuance of care Discharge Instructions: - Discharge Summary Sheet sd2 - Biliary Colic, Adult sd2 - Gallbladder Eating Plan sd2 Forms: - Medication Reconciliation Form sd2 - Thank You Letter sd2 - Antibiotic Education sd2 - Prescription Opioid Use sd2 - Patient Portal Instructions sd2 - Leadership Thank You Letter sd2 Prescriptions: - Ibuprofen 800 mg Oral Tablet - take 1 tablet by ORAL route every 8 hours As needed take with food; 30 tablet; sd2 Refills: 0, Product Selection Permitted - Tramadol 50 mg Oral Tablet - take 1 tablet by ORAL route every 6 hours As needed as needed; 12 tablet; sd2 Refills: 0, Product Selection Permitted Signatures: Dispatcher [employer] Valentin Slaughter RN RN ll3 Cordelia Mallory MD MD sd2 Masha Mcdonnell, RN RN pf1 Kelley Vasquez RN RN ad6
[2023-06-20] MEDS ORDERED: HYDROCODONE/APAP 10/325 TAB ONE (04:34)
[2023-06-20 05:14] VITALS: TEMP 97.8
[2023-06-20 05:18] VITALS: BP 156/86; O2SAT 97
--- NOTE | 2023-06-21 11:42 | RAD REPORT ---
EXAM DESCRIPTION: US - Abdomen Exam Limited - 06/20/2023 2:43 am CLINICAL HISTORY: ABD PAIN TECHNIQUE: Real-time and lewis scale sonographic imaging of the gallbladder was performed. COMPARISON: None available for comparison FINDINGS: Gallbladder: Distended gallbladder with small gallstones. No gallbladder wall thickening o r pericholecystic fluid. Common bile duct: 4.8 mm in diameter. IMPRESSION: Cholelithiasis with no ultrasound signs of acute cholecystitis or biliary ductal dilatat ion. Electronically signed by: Kenan Michaels MD 06/20/2023 3:29 AM CDT Due to temporary technical issues with the PACS/Fluency reporting system, reports are being signed by the in house radiologist without review as a courtesy to ensure prompt reporting. The interpreting r adiologist is fully responsible for the content of the report.
== END 2023-06-20 04:35 | disposition home or self-care (01) ==
LOC: ER 00:19
DX: K80.20 Calculus of gallbladder without cholecystitis without obstruction (principal); K80.50 Calculus of bile duct without cholangitis or cholecystitis without obstruction; E11.9 Type 2 diabetes mellitus without complications; I10 Essential (primary) hypertension
CPT/HCPCS: 96361; 85025; 36415; 84484; 83690; 80053; 76705; 96375; 96374; 99285; J1170; J2405; J7030

== ENCOUNTER 2023-06-28 08:24 | Inpatient (IN) | payer BC ==
--- NOTE | 2023-06-24 16:53 | RAD REPORT ---
EXAM DESCRIPTION: Javon Morrow (2 Views)06/24/2023 4:18 pm CLINICAL HISTORY: Abdominal pain. Preop for gallbladder surgery COMPARISON: 2019 FINDINGS: The lungs appear clear of acute infiltrate. The heart is probably borderline enlarged IMPRESSION: No acute abnormalities displayed
[2023-06-28] MEDS: NA CHLORIDE 0.9% 1,000 ML ONE ×2 (09:00→09:11)
[2023-06-28] MEDS: CEFOXITIN SODIUM 1 GM/VIAL ONE ×2 (09:09→11:08)
[2023-06-28] MEDS: BUPIVACAINE 0.5% PF 10 ML VIAL ONE ×2 (09:11→11:25)
[2023-06-28] MEDS ORDERED: propofoL 200 MG/20 ML VIAL IV ONE (09:26)
[2023-06-28] MEDS ORDERED: FENTANYL CITR 100 MCG/2 ML ONE (09:29)
[2023-06-28] MEDS ORDERED: LIDOCAINE 2% MPF 5 ML VIAL ONE (09:31)
[2023-06-28] MEDS ORDERED: ROCURONIUM 50 MG/5 ML VIAL IV ONE ×2 (09:32→12:11)
[2023-06-28] MEDS ORDERED: ONDANSETRON 4 MG/2 ML VIAL ONE ×2 (09:32→11:55)
[2023-06-28] MEDS ORDERED: MIDAZOLAM HCL 2 MG/2 ML INJ ONE (09:34)
[2023-06-28 11:00] LABS: Albumin 2.4 g/dL (3.4-5.0); Bilirubin Direct 0.7 mg/dL (0-0.2); Bilirubin Indirect, Calculated 0.5 mg/dL (0.2-0.8); Bilirubin Total 1.2 mg/dL (0.2-1.0); Protein, Total 7.8 g/dL (6.4-8.2)
[2023-06-28] MEDS ORDERED: dexAMETHasone 4 MG/ML VIAL ONE (11:55)
[2023-06-28] MEDS ORDERED: KETOROLAC 30 MG/ML INJ ONE (11:55)
--- NOTE | 2023-06-28 12:18 | EKG ---
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
[2023-06-28] MEDS ORDERED: ONDANSETRON 4 MG/2 ML VIAL IV PRN (12:49)
--- NOTE | 2023-06-28 12:49 | P.OP ---
Date of Service: 06/28/23 Preop diagnosis: Chronic cholecystitis and cholelithiasis, umbilical hernia Postop diagnosis: Same, perforated gallbladder with contained abscess Procedure performed: Diagnostic laparoscopy, open cholecystectomy and drainage of abscess and repair of umbilical hernia Surgeon: Ortiz Vega MD Back Sewer: Lyndsay HURTADO Estimated blood loss: Minimal Specimen: Pus for C&S, hernia sac, gallbladder Findings: As above Anesthesia: General Complications: None Drains: #10 flat Fluids and blood products: Nonapplicable Disposition: Recovery room Operative note: Patient brought to the OR and placed in supine position. General anesthesia begun. Patient prepped and draped in the usual sterile fashion. Examiner anesthesia patient was noted to have a small umbilical hernia. Marcaine 0.5% infiltrated locally. 15 blade used to make a 2 cm supraumbilical midline incision. Subcu tissue divided. Hernia sac and contents identified and dissected free from the fascial edges. Hernia sac and contents sent to pathology as specimen. 2 cm defect remained. #1 Vicryl stay suture placed. Peritoneal cavity entered with sharp and blunt dissection. 12 mm trocar placed into the peritoneal cavity under direct vision. Pneumoperitoneum established. Three 5 mm trocars placed. 1 trocar placed in the epigastric region just to the right of midline. 2 trocars placed in the right subcostal region. Laparoscopy revealed extensive adhesions to the gallbladder which could not be visualized. After lysis of adhesions, the gallbladder,s fundus was identified. It was intrahepatic with very friable outer wall. There was an abscess next to the gallbladder from a contained perforation covered by the omentum. Cultures were done on the pus. As the gallbladder was very friable and very difficult to manipulate laparoscopically a decision was made to convert to an open procedure. 2 right subcostal trocar sites were connected with 15 blade. Subcu tissue divided with cautery. Fascia identified and divided. Rectus abdominis muscle divided.Posterior sheath identified and divided. Peritoneal cavity entered. Lap pads utilized to expose the gallbladder. Retrograde dissection of the gallbladder was started carefully. The perforation was near the fundus and body junction. This was grasped with a Katalina clamp and retrograde dissection continued on the liver bed. Bleeding controlled with cautery. Cystic duct cystic artery identified with sharp and blunt dissection. Right angle clamp placed on both structures. Gallbladder removed and sent to pathology as specimen. 2-0 silk ties used to tie off the cystic duct and the cystic artery. Entire gallbladder fossa irrigated. Effluent clear no evidence of bleeding or bile leakage appreciated. #10 flat Freddy-Mccurdy drain placed in the gallbladder fossa and secured with 3-0 nylon. After the counts were done and correct, posterior sheath was closed with #1 chromic suture. Wound irrigated bleeding controlled with cautery. And then #2 nylon was used to close the fascia. Subcutaneous wound irrigated and bleeding controlled with cautery. 3-0 chromic used to loosely approximate the subcutaneous tissue. Staple used to close skin. The medical hernia was closed with #1 Vicryl suture. Subcu was irrigated and bleeding controlled cautery. 3-0 chromic used to approximate subcutaneous tissue and quyen used to close skin. Sterile dressing applied and patient awakened. Patient taken to recovery room in good general condition. CC: Dr. Nicholson's office
[2023-06-28] MEDS ORDERED: GLYCOPYRROLATE 0.2 MG/ML SYR ONE (12:51)
[2023-06-28] MEDS ORDERED: NEOSTIGMINE 1 MG/ML -10 ML VIAL ONE (12:51)
--- OUTSIDE RECORDS SUMMARY | 2023-06-28 13:34 | XMS REPORT | Continuity of Care Document ---
:1970 Author Organization [facility] t Address [address] [place] [address] Care Team Providers Name Role Phone Lex Alston PA-C Attending Clinician Lab, Adc Fam Pob I Attending Clinician Unavailable Herminia Stoddard Attending Clinician Doctor Unassigned, [place] Attending Clinician Unavailable Payers Payer Name Policy Type Policy Number Effective Date Expiration Date S ource Problems This patient has no known problems. Allergies, Adverse Reactions, Alerts Allergy Allergy Status Severity Reaction(s) Onset Inactive Treating Comm ents Source Name Type Date Date Clinician NO KNOWN Drug Active Univers ALLERGIE Class [facility] Social History Social Habit Start Date Stop Date Quantity Comments Source [facility] to SARS-CoV-2 Not sure [facility] [place] [facility] Smoking Status Start Date Stop Date Source Unknown if ever smoked [facility] Medications This patient has no known medications. Procedures This patient has no known procedures. Encounters Start End Encounter Admission Attending Care Care Encounter Source Date/Time Date/Time Type Type Clinicians Facility Department ID 2020-06-26 2020-06-26 Telephone LEX Alston [id number] Univers 00:00:00 00:00:00 Lex BUSBY [id number] [facility] [id number] Charlie as [phone] [address] 2020-06-26 2020-06-26 Telephone LEX Alston [id number] 00:00:00 00:00:00 Lex BUSBY [id number] HOSPITAL [id number] [facility] 2020-06-24 2020-06-24 Laboratory Lab, [facility] Fam Pob I [facility] [id number] Univers 13:33:51 13:53:51 Only Anene, [facility] [id number] [facility] [place] [id number] Charlie as Professio [phone] Pr dical [address] Office Building [facility] 2020-06-24 2020-06-24 Laboratory Lab, [facility] [id number] 13:33:51 13:53:51 Only Fam Pob I Health [id number] [place] [id number] Professio [phone] [place] [address] Office [facility] 2020-06-24 2020-06-24 Outpatient R [facility] [id number] Univers 13:40:00 13:40:00 ity of [facility] 2020-06-24 2020-06-24 Letter Doctor LEX [id number] Univers 00:00:00 00:00:00 (Out) Unassigned, KEHINDE [id number] ity of [place] [facility] [id number] Charlie as [phone] [address] 2020-06-24 2020-06-24 Letter Doctor BURNETT [id number] 00:00:00 00:00:00 (Out) Unassigned, KEHINDE [id number] [place] [facility] [id number] [facility] 2020-06-24 2020-06-24 Letter Doctor BURNETT [id number] 00:00:00 00:00:00 (Out) Unassigned, KEHINDE [id number] [place] [facility] [id number] [facility] 2020-06-24 2020-06-24 Letter Doctor BURNETT [id number] Univers 00:00:00 00:00:00 (Out) Unassigned, KEHINDE [id number] ity of [place] [facility] [id number] Charlie as [phone] [facility] [address] Results This patient has no known results.
[2023-06-28] MEDS: FENTANYL CITR 100 MCG/2 ML ONE ×2 (13:49→13:54)
[2023-06-28] MEDS ORDERED: HYDRALAZINE HCL 20 MG/ML VIAL IV PRN (14:09)
[2023-06-28] MEDS ORDERED: GLUCAGON 1 MG/VIAL IM PRN (14:10)
[2023-06-28] MEDS ORDERED: D10W 250 ML BAG IV PRN (14:10)
[2023-06-28] MEDS: NA CHLORIDE 0.9% 1,000 ML IV SCH (14:15)
[2023-06-28 14:36] VITALS: BMI 43.7
--- NOTE | 2023-06-28 14:38 | P.CNS ---
Date of Consult: 06/28/23 Reason for Consult: Medical Mnagement Requesting Physician: Ortiz Vega Chief Complaint: Abdominal pain History of Present Illness: Patient is a 53-year-old male with a past medical history significant for DM 2, hypertension who presented for a planned procedure with his surgeon following abdominal pain that has been ongoing for the past 4 days. Patient reported that abdominal pain is located in the right upper quadrant. Patient rated pain before procedure as 7/10 in severity and described pain as sharp in quality. Patient reported associated signs and symptoms of fever. Patient denies any other signs and symptoms. Symptoms are aggravated or relieved by nothing. Patient was diagnosed by his surgeon with a perforated gallbladder with abscess. Patient had a cholecystectomy with drainage of abscess and repair of umbilical hernia. Patient tolerated procedure. Currently resting in bed Allergies No Known Allergies Allergy (Verified 06/24/23 15:49) Home Medications: Amlodipine Bes/Olmesartan Med [Amlodipine-Olmesartan 10-20 mg] 1 each PO DAILY 06/24/23 Cetirizine HCl 10 mg PO DAILY 06/24/23 Cyanocobalamin (Vitamin B-12) [Cyanocobalamin Injection] 1 ml IM [facility] 06/24/23 Ibuprofen 800 mg PO Q6HP PRN 06/24/23 Semaglutide [Ozempic] 0.5 mg SQ [facility] 06/24/23 Tramadol HCl [Ultram] 50 mg PO Q6HP PRN 06/24/23 - Past Medical/Surgical History -: DM -: HTN Past Surgical History: Reviewed- Non-Contributory - Social History Smoking Status: Never smoker Alcohol use: No CD- Drugs: No Caffeine use: Yes Place of Residence: Home Review of Systems General: Fever Eyes: Unremarkable ENT: Unremarkable Respiratory: Unremarkable Cardiovascular: Unremarkable Gastrointestinal: Abdominal Pain Genitourinary: Unremarkable Musculoskeletal: Unremarkable Integumentary: Unremarkable Neurological: Unremarkable Lymphatics: Unremarkable Physical Examination Temp Pulse Resp BP Pulse Ox 97 F 65 18 112/69 06/28/23 13:55 06/28/23 13:55 06/28/23 13:55 06/28/23 13:55 General: Alert, In no apparent distress, Oriented x3, Cooperative HEENT: Atraumatic, PERRLA, Mucous membr. moist/pink, EOMI, Sclerae nonicteric Neck: Supple, 2+ carotid pulse no bruit, No LAD, Without JVD or thyroid abnormality Respiratory: Clear to auscultation bilaterally, Normal air movement Cardiovascular: No edema, Regular rate/rhythm, Normal S1 S2 Capillary refill: <2 Seconds Gastrointestinal: Normal bowel sounds, Tenderness Musculoskeletal: No clubbing, No swelling, No tenderness Integumentary: No rashes, No significant lesion, No tenderness/swelling Neurological: Normal speech, Normal tone, Normal affect Lymphatics: No axilla or inguinal lymphadenopathy Laboratory Data (last 24 hrs) 06/28/23 10:04 Total Bilirubin 1.2 H AST 35 ALT 34 Alkaline Phosphatase 126 H Lipase 87 H Conclusions/Impression: ---Chronic cholecystitis and cholelithiasis\umbilical hernia. Status post diagnostic laparoscopy, open cholecystectomy and drainage of abscess and repair of umbilical hernia. Patient tolerated procedure. EDWARDO drain draining serosanguineous fluid. Surgery on board. Continue antibiotics and IV hydration.. -- Acute pain. We will manage pain with current pain medication management. --Hypertension. Stable. Continue home medication. --DM2 with hyperglycemia. BS monitoring with sliding scale insulin. --Class III obesity. Likely secondary to excess calories intake. Patient will be counseled on weight reduction, diet and excise therapy when appropriate --Leukocytosis. Likely secondary to gallbladder abscess. Continue antibiotics. Will continue to monitor WBCs. --Anemia of chronic disease. H&H stable. We will continue to monitor hemoglobin and transfuse if less than 7.0. --DVT prophylaxis SCDs. Physician Review: Patient Assessed, Agree with Above Assessment and Plan Critical Care: No
[2023-06-28] MEDS: HYDROMORPHONE HCL 1 MG/ML INJ IV PRN ×2 (14:51→20:37)
[2023-06-28] MEDS: INSULIN -REGULAR HUMAN 50 UNIT/0.5 ML ML SQ SCH ×2 (16:28→21:37)
[2023-06-28] MEDS: HYDROCODONE/APAP 7.5/325 MG TAB PO PRN (17:10)
[2023-06-28] MEDS: PIPER TAZO 3.375 GM in NA CHLORIDE 0.9% 100 ML IV SCH (17:11)
[2023-06-28 18:46] LABS: Specific Gravity 1.022 (1.005-1.030); Urine Bacteria <20 /HPF (<20); Urine Bilirubin NEGATIVE (Negative); Urine Blood Negative (Negative); Urine Clarity Extremely Turbid (Clear); Urine Color Yellow (Yellow); Urine Crystals Unidentified Few /HPF (None Seen); Urine Glucose TRACE (Negative); Urine Mucus Slight /HPF (None Seen); Urine Protein 1+ (Negative); Urine Urobilinogen 1+ (Normal); Urine WBC Clump Rare /HPF (None Seen)
[2023-06-28 19:34] LABS: Absolute Lymphocytes (CBC) 0.8 K/uL (0.7-4.9); Hematocrit 34.7 % (39.6-49.0); Lymphocytes % 5.6 % (15.3-44.8); MCV 91.4 fL (80-100); Platelets 269 thou/uL (152-406); RBC Red Blood Cell Count 3.79 M/uL (4.33-5.43)
[2023-06-28 19:39] LABS: Potassium 4.1 mEq/L (3.5-5.1)
[2023-06-29] MEDS: PIPER TAZO 3.375 GM in NA CHLORIDE 0.9% 100 ML IV SCH ×3 (00:29→17:30)
[2023-06-29] MEDS: HYDROMORPHONE HCL 1 MG/ML INJ IV PRN ×5 (00:29→19:40)
[2023-06-29] MEDS: NA CHLORIDE 0.9% 1,000 ML IV SCH ×2 (02:40→09:00)
[2023-06-29 06:34] LABS: Absolute Lymphocytes (CBC) 1.6 K/uL (0.7-4.9); Hematocrit 32.1 % (39.6-49.0); Lymphocytes % 10.6 % (15.3-44.8); MCV 90.3 fL (80-100); MPV 9.3 fL (7.6-11.3); Platelets 259 thou/uL (152-406); RBC Red Blood Cell Count 3.55 M/uL (4.33-5.43)
[2023-06-29 06:49] LABS: Magnesium 1.8 mg/dL (1.6-2.4); Phosphorus 3.3 mg/dL (2.5-4.9); Potassium 3.6 mEq/L (3.5-5.1)
[2023-06-29] MEDS: INSULIN -REGULAR HUMAN 50 UNIT/0.5 ML ML SQ SCH ×4 (07:30→20:52)
[2023-06-29 08:46] VITALS: O2SAT 94
[2023-06-29] MEDS: CETIRIZINE HCL 5 MG TABLET PO SCH (08:50)
[2023-06-29] MEDS: VALSARTAN 80 MG TAB PO SCH (08:51)
[2023-06-29] MEDS: AMLODIPINE 10 MG TAB PO SCH (08:51)
[2023-06-29] MEDS ORDERED: [UNRECOGNIZED DRUG - OTHER] PO SCH (09:00)
[2023-06-29] MEDS ORDERED: HOME MED 1 EA UNK (Cetirizine Hcl [Cetirizine Hcl] 10 MG Tablet) PO SCH (09:00)
[2023-06-29] MEDS ORDERED: MAGNESIUM SULFATE 1 gm IVPB 1 GM/100 ML BAG IV ONE (09:00)
[2023-06-29] MEDS ORDERED: OLMESARTAN MED PO SCH (09:00)
[2023-06-29] MEDS ORDERED: POTASSIUM CL SA 10 MEQ TAB PO ONE (09:00)
[2023-06-29] MEDS ORDERED: AMLODIPINE BES PO SCH (09:00)
[2023-06-29] MEDS: HYDROCODONE/APAP 7.5/325 MG TAB PO PRN ×3 (11:20→22:37)
--- NOTE | 2023-06-29 13:43 | P.PN ---
Date of Service: 06/29/23 Subjective: Patient is awake and alert. Complaining of incisional pain. Feels much better than before surgery. Tolerating clear liquids. Wants regular diet. Objective: Signs stable, afebrile White count is 15,000 Abdomen: Soft, nondistended, positive bowel sounds, minimal incisional tenderness. Dressing is clean dry and intact Assessment: Status post open cholecystectomy for perforated gallbladder with abscess and repair of umbilical hernia Plan: Continue IV antibiotics, advance diet, encourage ambulation and incentive spirometry. Patient is clinically improving. Hopefully, discharge patient in 24 to 48 hours. CC:
--- NOTE | 2023-06-29 16:31 | P.PN ---
Subjective Date of Service: 06/29/23 Chief Complaint: Abdominal pain POD#1 from diagnostic laparoscopy, open cholecystectomy and drainage of abscess and repair of umbilical hernia. He is doing well this morning. He reports post- operative abdominal pain. He states that the pain is generalized and graded an 8/10 in severity. He describes the pain as a dull ache. He reports having flatus, but no bowel movement yet. He denies any fevers, chills, chest pain, palpitations, or shortness of breath. Review of Systems 10-point ROS is otherwise unremarkable Gastrointestinal: Abdominal Pain Physical Examination - Vital Signs Temperature: 99.9 F Blood Pressure: 119/55 Pulse: 74 Respirations: 16 Pulse Ox (%): 96 - Physical Exam General: Alert, In no apparent distress, Oriented x3 HEENT: Atraumatic, Mucous membr. moist/pink, Sclerae nonicteric Neck: JVD not distended Respiratory: Clear to auscultation bilaterally, Normal air movement Cardiovascular: No edema, Regular rate/rhythm, Normal S1 S2, No gallops, No rubs, No murmurs Gastrointestinal: Hypoactive, Non-distended, Other (incision sites covered in clean dressing), Tenderness (generalized) Musculoskeletal: No clubbing Integumentary: No rashes Neurological: Normal speech, Normal affect - Studies Laboratory Data (last 24 hrs) 06/29/23 06/29/23 06/28/23 05:45 05:45 19:09 WBC 15.10 H Hgb 10.8 L Hct 32.1 L Plt Count 259 Sodium 135 L 134 L Potassium 3.6 4.1 BUN 20 H 21 H Creatinine 1.23 1.29 Glucose 128 H 196 H Phosphorus 3.3 Magnesium 1.8 Triglycerides 159 H Cholesterol 127 HDL Cholesterol 20 L Cholesterol/HDL Ratio 6.35 06/28/23 19:09 WBC 15.00 H Hgb 11.4 L Hct 34.7 L Plt Count 269 Sodium Potassium BUN Creatinine Glucose Phosphorus Magnesium Triglycerides Cholesterol HDL Cholesterol Cholesterol/HDL Ratio Microbiology Data (last 24 hrs): 06/28/23 11:54 Wound - Other Gram Stain - Final 06/28/23 11:54 Body Fluid - Other Gram Stain - Final Assessment And Plan - Plan DIAGNOSES: # Acute Gangrenous Cholecystitis with Perforated Gallbladder and Contained Abscess s/p Diagnostic Laparoscopy, Open Cholecystectomy, and Drainage of Gram- Negative Abscess (06/28/2023) # Umbilical Hernia s/p Repair (06/28/2023) # Hyperglycemia in Type II Diabetes Mellitus # Hypertension # Morbid Obesity - BMI 43.7 kg/m2 RECOMMENDATIONS: - Not meeting sepsis criteria - Continue piperacillin-tazobactam for now - PRN pain control - Advance diet per primary team - For hypertension, continue amlodipine, valsartan - For diabetes, continue correction scale insulin - Encouraged incentive spirometry Thank you for this consultation. Internal Medicine will continue to follow along while hospitalized. Donte Erickson M.D.
[2023-06-30] MEDS: PIPER TAZO 3.375 GM in NA CHLORIDE 0.9% 100 ML IV SCH ×2 (00:19→08:04)
[2023-06-30] MEDS: HYDROMORPHONE HCL 1 MG/ML INJ IV PRN ×2 (00:21→05:02)
[2023-06-30 05:34] LABS: Absolute Lymphocytes (CBC) 1.7 K/uL (0.7-4.9); Hematocrit 30.8 % (39.6-49.0); Lymphocytes % 12.7 % (15.3-44.8); MCV 90.7 fL (80-100); MPV 9.4 fL (7.6-11.3); Platelets 257 thou/uL (152-406); RBC Red Blood Cell Count 3.39 M/uL (4.33-5.43)
[2023-06-30 05:41] LABS: Magnesium 2.1 mg/dL (1.6-2.4); Potassium 3.8 mEq/L (3.5-5.1)
[2023-06-30] MEDS: INSULIN -REGULAR HUMAN 50 UNIT/0.5 ML ML SQ SCH (08:03)
[2023-06-30] MEDS: HYDROCODONE/APAP 7.5/325 MG TAB PO PRN (08:04)
[2023-06-30] MEDS: AMLODIPINE 10 MG TAB PO SCH (08:05)
[2023-06-30] MEDS: VALSARTAN 80 MG TAB PO SCH (08:06)
[2023-06-30] MEDS: CETIRIZINE HCL 5 MG TABLET PO SCH (08:06)
[2023-06-30 08:07] VITALS: BP 149/70
[2023-06-30 08:27] VITALS: TEMP 99.7
[2023-06-30] MEDS ORDERED: POTASSIUM CL SA 10 MEQ TAB PO ONE (09:00)
--- NOTE | 2023-06-30 10:47 | P.PN ---
Subjective Date of Service: 06/30/23 Chief Complaint: Abdominal pain POD#2 from diagnostic laparoscopy, open cholecystectomy and drainage of abscess and repair of umbilical hernia. He reports that his symptoms have improved compared to yesterday. He reports having flatus, but no bowel movement yet. He denies any fevers, chills, chest pain, palpitations, or shortness of breath. Review of Systems 10-point ROS is otherwise unremarkable Gastrointestinal: Abdominal Pain (improving) Physical Examination - Vital Signs Temperature: 99.7 F Blood Pressure: 149/70 Pulse: 71 Respirations: 18 Pulse Ox (%): 95 - Studies Laboratory Data (last 24 hrs) 06/30/23 06/30/23 04:55 04:55 WBC 13.70 H Hgb 10.5 L Hct 30.8 L Plt Count 257 Sodium 134 L Potassium 3.8 BUN 15 Creatinine 1.04 Glucose 154 H Magnesium 2.1 Microbiology Data (last 24 hrs): 06/28/23 11:54 Wound - Other Gram Stain - Final 06/28/23 11:54 Wound - Other Culture & Sensitivity - Final Escherichia Coli Gram Neg Ben 06/28/23 18:30 Clean Catch Urine [place] Count - Final No growth. 06/28/23 18:30 Clean Catch Urine - Final No growth. 06/28/23 11:54 Body Fluid - Other Gram Stain - Final Assessment And Plan - Plan - Physical Exam General: Alert, In no apparent distress, Oriented x3 HEENT: Atraumatic, Mucous membr. moist/pink, Sclerae nonicteric Respiratory: Clear to auscultation bilaterally, Normal air movement Cardiovascular: No edema, Regular rate/rhythm, No murmurs Gastrointestinal: Normoactive, Non-distended, Other (incision sites covered in clean dressing), Tenderness (minimal generalized) Musculoskeletal: No clubbing Neurological: Normal speech, Normal affect DIAGNOSES: # Acute Gangrenous Cholecystitis with Perforated Gallbladder and Contained Abscess s/p Diagnostic Laparoscopy, Open Cholecystectomy, and Drainage of Fu- Sensitive Escherichia Coli Abscess (06/28/2023) # Umbilical Hernia s/p Repair (06/28/2023) # Hyperglycemia in Type II Diabetes Mellitus # Hypertension # Anemia # Microscopic Hematuria # Morbid Obesity - BMI 43.7 kg/m2 RECOMMENDATIONS: - Not meeting sepsis criteria - Continue piperacillin-tazobactam for now - Can transition to amoxicillin-clavulanate at discharge - PRN pain control - Advance diet per primary team - For hypertension, continue amlodipine, valsartan - For diabetes, continue correction scale insulin - Will need outpatient follow-up with PCP regarding anemia and microscopic hematuria. He will require a colonoscopy and, if microscopic hematuria does not resolve, he will also require Urologic follow-up to evaluate for underlying urologic malignancy. - Encouraged incentive spirometry Thank you for this consultation. Internal Medicine will continue to follow along while hospitalized. Donte Erickson M.D.
--- NOTE | 2023-07-01 08:39 | DS ---
Date of Discharge: 06/30/2023 Admitting Diagnoses: Chronic cholecystitis and cholelithiasis. Discharge Diagnoses: Perforated gallbladder with abscess and gallbladder had gangrene in it as well on final pathology. Procedure Performed: Open cholecystectomy and drainage of intraabdominal abscess as well as repair o f umbilical hernia. Hospital Course: The patient is a 53-year-old gentleman, underwent the aforementioned procedure with the findings as noted and postoperatively, he slowly progressed to pain being controlled on oral med ications. Today, he is ambulating. He is afebrile. His white count is coming down, almost normaliz ed, it is around 13,000. Electrolytes are within normal limits. Clinically, he is improving and wan ts to go home. Therefore, patient will be discharged to home. The patient was seen by the Internal Medicine hospitalist group to manage his medical issues and medications. Therefore, patient will be discharged to home. Disposition: Home. Condition: Stable. Discharge Instructions: Resume home medications and diet. Activity as tolerated. No heavy lifting. Remove outer dressing now and shower. Dry gauze to wound daily. Follow up in my office in a week, call for appointment. Augmentin, Colace, and Osborne 7.5 have been called into patient's Pharmacy. I ncentive spirometry as directed. /MODL Voice ID: [id number] Report ID: [id number]
[2023-07-01] MEDS ORDERED: HOME MED 1 EA UNK (Semaglutide [Ozempic] 1 MG/0.75 ML Pen.Injctr) SQ SCH (09:00)
== END 2023-06-30 12:01 | disposition home or self-care (01) | DRG 415 ==
LOC: OR 08:24 → 4TH 12:50
PROVIDERS: ADMIT Surgery; ATTEND Surgery
PROC: 0FJ44ZZ Inspection of Gallbladder, Percutaneous Endoscopic Approach (ICD-10-PCS; 2023-06-28)
PROC: 0W9G00Z Drainage of Peritoneal Cavity with Drainage Device, Open Approach (ICD-10-PCS; 2023-06-28)
PROC: 0WQF0ZZ Repair Abdominal Wall, Open Approach (ICD-10-PCS; 2023-06-28)
PROC: 0FT40ZZ Resection of Gallbladder, Open Approach (ICD-10-PCS; principal; 2023-06-28 10:00)
DX: K80.12 Calculus of gallbladder with acute and chronic cholecystitis without obstruction (principal); K82.A2 Perforation of gallbladder in cholecystitis; Z68.41 Body mass index [BMI] 40.0-44.9, adult; E66.01 Morbid (severe) obesity due to excess calories; I10 Essential (primary) hypertension; D63.8 Anemia in other chronic diseases classified elsewhere; E11.65 Type 2 diabetes mellitus with hyperglycemia; K42.9 Umbilical hernia without obstruction or gangrene; R31.29 Other microscopic hematuria; Z71.3 Dietary counseling and surveillance; Z53.31 Laparoscopic surgical procedure converted to open procedure
CPT/HCPCS: 36415; 71046; 80048; 80061; 80076; 81001; 82947; 83690; 83735; 83880; 84100; 85025; 87070; 87075; 87077; 87086; 87088; 87186; 87205; 88302; 88304; 93005; 94010; J0694; J1100; J1170; J1815; J2001; J2250; J2405; J2543; J2704; J2710; J3010; J3475; J7030